=== PATIENT | male | born 1955 | race Caucasian/White ===

== ENCOUNTER 2021-04-04 19:38 | Emergency (ER) | payer MEDICARE, MEDICAID, SELFPAY ==
--- NOTE | 2021-04-04 | ECG_ITS ---
Test Reason : TIGHTNESS Blood Pressure : / mmHG Vent. Rate : 057 BPM Atrial Rate : 057 BPM P-R Int : 178 ms QRS Dur : 098 ms QT Int : 434 ms P-R-T Axes : 074 059 049 degrees QTc Int : 422 ms Sinus bradycardia Otherwise normal ECG No previous ECGs available Referred By: Giovanni Buckner Electronically Signed By:MAISHA SHEPPARD
[2021-04-04 19:58] VITALS: BP 133/77; PULSE 56; RESP 10; TEMP 37; O2SAT 99; BMI 20.5
--- NOTE | 2021-04-04 20:05 | ED_ITS ---
HPI - Syncope General Chief Complaint: Syncope Stated Complaint: SYNCOPE Time Seen by Provider: 04/04/21 20:04 Source: patient Limitations: no limitations History of Present Illness HPI narrative: This is a 66-year-old male with a history of hypercholesterolemia and pre diabetes, both of which have been helped by a low carb diet, who was at a restaurant tonight eating. He had a mild headache and became dizzy and had a brief episode of syncope. He did not fall collapse in any way, was helped with the cold compress. After coming to, he felt somewhat flushed and clammy. He had had some gas associated with having just eating clam chowder. He denies any chest pain or shortness of breath, or palpitations. He notes heart rate tends to run in the 50s. He denies any prior history of heart disease, prior syncopal episodes Related Data Allergies Allergy/AdvReac Type Severity Reaction Status Date / Time No Known Allergies Allergy Verified 04/04/21 20:12 Review of Systems Review of Systems: Yes all other systems are reviewed and are negative Constitutional: Constitutional: Reports as per HPI and Denies fever(s) Eyes: Eyes: Reports as per HPI and Reports no additional eye complaints ENT: Reports system reviewed and no additional complaints, except as documented, Reports as per HPI, Reports dizziness, Denies nasal congestion, Denies nasal discharge and Denies sore throat Cardiovascular: Cardiovascular: Reports as per HPI, Denies chest pain, Reports syncope and Denies dyspnea Respiratory: Respiratory: Reports as per HPI, Denies cough and Denies dyspnea Gastrointestinal: Gastrointestinal: Reports as per HPI, Denies abdominal pain, Denies diarrhea and Denies vomiting Genitourinary: Genitourinary: Reports as per HPI, Denies hematuria, Denies dysuria and Denies urinary frequency Musculoskeletal: Musculoskeletal: Reports no additional musculoskeletal complaints and Denies numbness Integumentary/Breasts: Skin/Breast: Reports as per HPI and Denies rash Neurologic: Reports dizziness, Reports syncope, Denies numbness and Denies Sensory deficit (Neuro) Psychiatric: Psychiatric: Reports no additional psychiatric complaints and Reports as per HPI Endocrine: Endocrine: Reports no additional endocrine complaints and Reports as per HPI Hematologic/Lymphatic: Hematologic/Lymphatic: Reports no additional hematologic/lymphatic complaints, Reports as per HPI and Reports other (No peripheral edema) [facility] Past Medical History Medical History (Updated 04/05/21 @ 00:01 by Background Daemon) Insomnia Osteoporosis Social History Social History Alcohol intake: never Patient Tobacco Use Status: Never used Tobacco Use of substances other than those prescribed or required for medical reasons: No Advance Directives: No Physical Exam Vital Signs: Vital Signs: Last Vital Signs Temp 98.1 F 04/04/21 21:44 Pulse 63 04/04/21 21:44 Resp 12 04/04/21 21:44 BP 122/77 04/04/21 21:44 Pulse Ox 98 04/04/21 21:44 Body Mass Index 20.5 Const: General: cooperative, no acute distress and alert Orientation/consciousness: patient oriented x3 HENMT: Head: Yes normal to inspection Eyes: General: appearance normal, both eyes and all related structures Eyelids: Yes eyelids normal Conjunctivae: conjunctivae normal Pupils: Equal, round and reactive pupils present Neck: Neck: Yes normal visual inspection and Yes supple Chest: Chest palpation & inspection: normal inspection of the chest Resp: Effort & Inspection: normal respiratory effort Auscultation: clear to auscultation bilaterally Cardio: Rate: regular rate Rhythm: regular rhythm Heart sounds: S1 normal heart sound present, S2 normal heart sound present, no gallops, no murmurs and no rubs GI: Palpation (GI): Soft to palpation, nontender and Other GI palpation findings present (Non-distended) Auscultation: normal bowel sounds Skin: General skin exam: no rashes or lesions noted Neuro: General: patient oriented x3, no focal motor deficits and CN's II-XI intact bilaterally Cranial nerves: Yes Equal, round and reactive pupils present Cognition (Neuro): normal cognition Motor exam (neuro): 5/5 motor strength present throughout Sensory Exam: No Sensory deficit (Neuro) Extrem: General: Yes normal to inspection and Yes no pedal edema Psych: Appearance: grossly normal Affect: normal affect MDM - Syncope MDM Narrative Medical decision making narrative: Patient with likely vasovagal syncope, which occurred while he was eating. The patient had mild headache and did have some gas. Patient also notes that after he went to the bathroom tonight he did pass a lot of gas and he had had a large bowel movement earlier today. EKG unremarkable. Troponin negative. Patient not anemic. Patient ambulated to the bathroom steadily and felt well. Lab Data Result diagrams: 04/04/21 20:33 04/04/21 20:33 Labs: Lab Results 04/04/21 04/04/21 04/04/21 Range/Units 20:33 20:33 20:33 WBC 7.0 (4.8-10.8) X10*3/uL RBC 4.48 L (4.60-5.80) X10*6/uL Hgb 14.8 (14.0-18.0) g/dl Hct 43.4 (42-52) % MCV 96.9 (80-98) fL MCH 33.0 (27.0-33.0) pg MCHC 34.1 (31.0-36.0) g/dl RDW 12.0 (11.0-16.0) % Plt Count 230 (160-400) X10*3/uL MPV 9.2 L (9.4-12.4) fL Immature Gran % (Auto) 0.4 (0.0-0.4) % Neut % (Auto) 77.8 H (45-73) % Lymph % (Auto) 10.9 L (20-40) % [place] % (Auto) 8.2 (2-11) % Eos % (Auto) 2.0 (0-4) % Baso % (Auto) 0.7 (0-2) % Lymph # (Auto) 0.8 L (1.2-4.9) X10*3/uL [place] # (Auto) 0.6 (0.1-1.2) X10*3/uL Eos # (Auto) 0.1 (0.0-0.4) X10*3/uL Baso # (Auto) 0.1 (0.0-0.2) X10*3/uL Abs Immat Gran (auto) 0.03 (0.00-0.03) X10*3/uL Absolute Neuts (auto) 5.4 (2.0-8.3) X10*3/uL Absolute Nucleated RBC 0.000 (0.0-0.012) X10*3/uL Nucleated RBC % (auto) 0.0 (0.0-0.2) /100WBC Sodium 130 L (135-145) mmol/L Potassium 4.1 (3.3-5.1) mmol/L Chloride 103 (96-108) mmol/L Carbon Dioxide 16 L (22-29) mmol/L Anion Gap 15 (12-20) BUN 11 (9-16) mg/dL Creatinine 0.85 (0.5-1.4) mg/dL Estim Creat Clear Calc 75.0 Estimated GFR > 60 Random Glucose 123 H (60-115) mg/dL Calcium 8.7 (8.4-10.2) mg/dL Total Bilirubin 0.7 (0.0-1.0) mg/dL AST 32 (5-37) U/L ALT 15 (0-40) U/L Alkaline Phosphatase 43 (39-117) U/L Troponin I High Sens < 3.5 (<3.5-35.0) ng/L Total Protein 6.8 (6.5-8.0) g/dL Albumin 4.4 (3.5-5.0) g/dL ECG Data Attestation: I personally reviewed and interpreted this ECG as follows: ECG interpretation date: 04/04/21 Interpretation: Sinus bradycardia with rate of 57. No ST elevation depression. No ectopy. Normal QRS axis Discharge Plan Discharge Clinical Impression: Vasovagal syncope Patient Disposition: Home, Self-Care Instructions: Syncope in Older Adults (ED) Additional Instructions: Drink plenty of fluids. Follow up with your primary care physician. Return for any new or worsened symptoms such as recurrent episodes of fainting, dizzy episodes, palpitations, black or bloody stool Interventions: ED Discharge Assessment Last Done: 04/04/21 22:10 Discharge Date/Time: 04/04/21 22:10
[2021-04-04 20:40] LABS: MANUAL DIFF FLAG NO
[2021-04-04 20:41] LABS: Basophils Absolute Auto 0.1 X10*3/uL (0.0-0.2); Basophils Percent Auto 0.7 % (0-2); Eosinophils Absolute Auto 0.1 X10*3/uL (0.0-0.4); Hematocrit 43.4 % (42-52); Hemoglobin 14.8 g/dl (14.0-18.0); Imm Gran Abs Auto 0.03 X10*3/uL (0.00-0.03); Imm Gran Pct Auto 0.4 % (0.0-0.4); Lymphocytes Absolute Auto 0.8 X10*3/uL (1.2-4.9); Lymphocytes Percent Auto 10.9 % (20-40); Mean Corpuscular HGB Conc 34.1 g/dl (31.0-36.0); Mean Corpuscular Volume 96.9 fL (80-98); Mean Platelet Volume 9.2 fL (9.4-12.4); Monocytes Absolute Auto 0.6 X10*3/uL (0.1-1.2); Monocytes Percent Auto 8.2 % (2-11); Neutrophils Absolute Auto 5.4 X10*3/uL (2.0-8.3); Neutrophils Percent Auto 77.8 % (45-73); Platelet Count 230 X10*3/uL (160-400); Red Blood Count 4.48 X10*6/uL (4.60-5.80)
[2021-04-04] MEDS: 0.9 % Sodium Chloride 500 ML IV (20:59)
[2021-04-04 21:04] LABS: Alanine Aminotransferase 15 U/L (0-40); Albumin Level 4.4 g/dL (3.5-5.0); Alkaline Phosphatase 43 U/L (39-117); Anion Gap 15 (12-20); Aspartate Amino Transferase 32 U/L (5-37); Bilirubin Total 0.7 mg/dL (0.0-1.0); Blood Urea Nitrogen 11 mg/dL (9-16); Calcium 8.7 mg/dL (8.4-10.2); Carbon Dioxide 16 mmol/L (22-29); Chloride 103 mmol/L (96-108); Estimated Glomerular Filt Rate > 60; Glucose Random 123 mg/dL (60-115); Potassium 4.1 mmol/L (3.3-5.1); Sodium 130 mmol/L (135-145); Total Protein 6.8 g/dL (6.5-8.0)
[2021-04-04 21:05] LABS: Troponin-I High Sensitivity < 3.5 ng/L (<3.5-35.0)
[2021-04-04 21:39] VITALS: O2SAT 99
[2021-04-04 21:44] VITALS: BP 122/77; PULSE 63; RESP 12; TEMP 36.7; O2SAT 98
== END 2021-04-04 22:10 | disposition home or self-care (01) ==
PROVIDERS: Emergency Provider Emergency Medicine; PCP Family Medicine
DX: R55 Syncope and collapse (principal); Z79.899 Other long term (current) drug therapy
CPT/HCPCS: 36415; 80053; 84484; 85025; 93005; 96360; 99284; 99285

== ENCOUNTER 2025-03-12 10:30 | Emergency (ER) | payer MEDICARE, SELFPAY ==
--- NOTE | ~2025-03-12 | XR_ITS ---
EXAMINATION: XR CHEST 1 VIEW HISTORY: Pneumonia? COMPARISON: There are no prior studies available for comparison. FINDINGS: A single PA view of the chest is submitted. The lungs are expanded and clear. There is no pleural effusion, pneumothorax, or pulmonary vascular congestion. The heart is normal in size. There is mild levoscoliosis and degenerative disc disease of the spine. XR/XR chest 1V IMPRESSION: Clear lungs. Electronically signed by: Washington Chin MD 03/12/2025 11:26 AM EDT
--- NOTE | 2025-03-12 10:31 | ECG_ITS ---
Test Reason : PATPITATION Blood Pressure : */* mmHG Vent. Rate : 95 BPM Atrial Rate : * BPM P-R Int : * ms QRS Dur : 84 ms QT Int : 320 ms P-R-T Axes : * 13 22 degrees QTcB Int : 402 ms Atrial fibrillation Septal infarct , age undetermined Abnormal ECG When compared with ECG of 04-Apr-2021 20:08, Atrial fibrillation has replaced Sinus rhythm Vent. rate has increased by 38 bpm Referred By: Generic ED Physician Electronically Signed By: RENATO BOYLE
[2025-03-12 10:54] VITALS: BP 169/81; PULSE 102; RESP 16; TEMP 37; O2SAT 98; BMI 22.6
--- NOTE | 2025-03-12 11:01 | ED.GENADULT ---
HPI - General Adult General Chief complaint: Arrhythmia/Palpitations Stated complaint: Heart palpitations Time Seen by Provider: 03/12/25 13:45 Source: patient Mode of arrival: ambulatory Limitations: no limitations History of Present Illness ED Provider: DR. Brewster HPI narrative: 70-year-old male history of hypercholesterolemia and prediabetic came in for evaluation of palpitation, feeling dizziness and lightheadedness, patient also was complaining of left arm pain this morning. No CP, no LOC, no SOB. Related Data Home Medications ?Medication ?Instructions ?Recorded ?Confirmed acetaminophen 500 mg tablet 500 mg PO Q6H PRN Pain 03/12/25 03/12/25 ascorbic acid (vitamin C) 1,000 mg 1,000 mg PO DAILY 03/12/25 03/12/25 tablet (Vitamin C) cholecalciferol (vitamin D3) 50 50 mcg PO BID 03/12/25 03/12/25 mcg (2,000 unit) tablet (Vitamin D3) vitamin B complex 1 tab PO DAILY 03/12/25 03/12/25 zinc gluconate 50 mg tablet 50 mg PO DAILY 03/12/25 03/12/25 Previous Rx's ?Medication ?Instructions ?Recorded apixaban 5 mg tablet (Eliquis) 5 mg PO BID #60 tabs 03/12/25 metoprolol tartrate 25 mg tablet 12.5 mg (1/2 x 25 mg) PO BID #20 03/12/25 tabs Allergies Allergy/AdvReac Type Severity Reaction Status Date / Time No Known Allergies Allergy Verified 03/12/25 10:57 Review of Systems Review of Systems: All other systems are reviewed and are negative Constitutional: Reports as per HPI and Reports no additional constitutional complaints Eyes: Reports as per HPI and Reports no additional eye complaints Reports system reviewed and no additional complaints, except as documented Cardiovascular: Reports as per HPI and Reports no additional cardiovascular complaints Respiratory: Reports as per HPI and Reports no additional respiratory complaints Gastrointestinal: Reports as per HPI and Reports no additional gastrointestinal complaints Genitourinary: Reports no additional female genitourinary complaints Musculoskeletal: Reports no additional musculoskeletal complaints Skin/Breast: Reports system reviewed and no additional complaints, except as docu Psychiatric: Reports no additional psychiatric complaints Endocrine: Reports no additional endocrine complaints Hematologic/Lymphatic: Reports no additional hematologic/lymphatic complaints Allergic/Immunologic: Reports no additional allergic/immunologic complaints Reports system reviewed and no additional complaints, except as documented and Reports Abnormal speech present [facility] Past Medical History Medical History Osteoporosis Insomnia Social History Social History Alcohol intake: never Patient Tobacco Use Status: Never used Tobacco Physical Exam ED Vital Signs: Vital Signs - 24 hr 03/12/25 14:26 03/12/25 14:45 03/12/25 16:41 Temperature 98.5 F Pulse Rate 98 96 96 Respiratory Rate 14 12 12 Blood Pressure 98/68 131/79 131/79 Pulse Oximetry 100 98 98 Oxygen Delivery Method Room Air Room Air Room Air BMI result Body Mass Index 22.6 Vital signs have been reviewed and appear to be correct. Blood pressure elevated. Heart rate normal. Respiratory rate normal. Temperature normal. Oxygen saturation normal. Appearance: Alert. Oriented X3. No acute distress. Head: Normal external exam. Normocephalic. Atraumatic. No Baker signs noted. No raccoon eyes noted Eyes: PERRLA. EOMI. Conjunctiva and sclera normal. Eyelids normal. ENT: TM's Normal. Pharynx normal. Uvula midline. Moist mucous membranes. No trismus noted. No drooling noted. No muffled voice noted. Neck: Normal inspection. Neck supple. FROM. No adenopathy. Thyroid Normal. No meningeal signs. No neck mass noted. CVS: Normal heart rate and rhythm. Heart sound normal. No murmurs noted. Pulses normal throughout. Respiratory: No respiratory distress. Painless inspiration. Breath sounds normal. No wheezes/rales/rhonchi noted. Chest nontender. No accessory muscle usage noted or decreased air movement noted. Abdomen: Soft and nontender. Bowel sounds normal in all 4 quadrants. No distention noted. No organomegaly noted. No visible injury noted. Back: No CVA tenderness. Full range of motion noted. Skin: Skin warm and dry. Normal skin color. Normal skin turgor. No rashes/lesions/lacerations noted. Extremities: No lower extremity edema. Extremities exhibit normal range of motion. Extremities nontender. Neuro: Oriented X 3. Cranial nerve exam: II-XII are grossly intact No motor deficit. No sensory deficit. Reflexes normal. Course Course Course Narrative: RME: 70 yold male presents to the ED for heart palptiations this morning at 8am with left arm pain. patient states no chest pain. negative for any neuro dieficts. NIH score 0. labs, EKG, chest xray ordered Reevaluation(s) Reevaluation #1: New onset AFib, [id number] is 1, will controlled with beta domenico, patient converted into normal sinus rhythm at 60 beats per minute, no chest pain, no dizziness, case discussed with Dr. Dominguez the plan is to discharge patient on metoprolol and Eliquis and follow-up as an outpatient with Dr. Dominguez. Time: 14:06 Medications Administered Discontinued Medications Generic Name Dose Route Start Last Admin Trade Name Freq PRN Reason Stop Dose Admin Apixaban 5 mg 03/12/25 15:48 03/12/25 16:16 Apixaban 5 Mg Tablet PO 03/12/25 15:49 5 mg ONCE ONE Administration Lactated Ringer's 1,000 mls @ 500 mls/hr 03/12/25 14:15 03/12/25 16:26 Lr IV 03/12/25 16:14 Infused .Q2H AUREA Infusion Metoprolol Succinate 25 mg 03/12/25 13:45 03/12/25 14:26 Metoprolol Succinate Er 25 Mg Tab.Er.24h PO 03/12/25 13:46 25 mg ONCE ONE Administration Protocol Metoprolol Tartrate 5 mg 03/12/25 13:45 03/12/25 14:27 Metoprolol Tartrate 5 Mg/5 Ml Vial IVPUSH 03/12/25 13:46 5 mg ONCE ONE Administration Protocol Medical Decision Making Differential Diagnosis Differential Diagnoses: The differential diagnosis associated with the presentation includes (CHF, ACS, new onset AFib, CVA, electrolyte derangement, severe anemia.) Admission/Observation Consideration of admission/observation: Escalation of care including admission/observation considered Consult Healthcare Provider Management of the patient was discussed with: Hospitalist (Dr. Ba) Lab Data MDM Lab Attestation statement: I reviewed the patient's lab results. 03/12/25 11:09 03/12/25 11:09 Labs: Lab Results 03/12/25 Range/Units 11:09 WBC 7.2 (4.8-10.8) X10*3/uL RBC 4.86 (4.60-5.80) X10*6/uL Hgb 15.9 (14.0-18.0) g/dl Hct 48.1 (42.0-52.0) % MCV 99.0 H (80.0-98.0) fL MCH 32.7 (27.0-33.0) pg MCHC 33.1 (31.0-36.0) g/dl RDW 12.2 (11.0-16.0) % Plt Count 238 (160-400) X10*3/uL MPV 9.6 (9.4-12.4) fL Immature Gran % (Auto) 0.4 (0.0-0.4) % Neut % (Auto) 80.3 H (45-73) % Lymph % (Auto) 10.5 L (20-40) % [place] % (Auto) 7.4 (2-11) % Eos % (Auto) 0.7 (0-4) % Baso % (Auto) 0.7 (0-2) % Lymph # (Auto) 0.8 L (1.2-4.9) X10*3/uL [place] # (Auto) 0.5 (0.1-1.2) X10*3/uL Eos # (Auto) 0.1 (0.0-0.4) X10*3/uL Baso # (Auto) 0.1 (0.0-0.2) X10*3/uL Abs Immat Gran (auto) 0.03 (0.00-0.03) X10*3/uL Absolute Neuts (auto) 5.8 (2.0-8.3) x10*3/uL Absolute Nucleated RBC 0.000 (0.0-0.012) X10*3/uL Nucleated RBC % (auto) 0.0 (0.0-0.2) /100WBC PT 11.3 (10.9-12.4) SEC INR 1.0 (0.9-1.1) APTT 33.4 (26.7-34.1) SEC Sodium 138 (135-145) mmol/L Potassium 4.2 (3.3-5.1) mmol/L Chloride 101 (96-108) mmol/L Carbon Dioxide 29 (22-29) mmol/L Anion Gap 12 (12-20) BUN 16 (9-16) mg/dL Creatinine 0.79 (0.5-1.4) mg/dL Estim Creat Clear Calc 84.1 Estimated GFR > 60 Random Glucose 127 H (60-115) mg/dL Calcium 10.1 D (8.4-10.2) mg/dL Magnesium 1.9 (1.6-2.6) mg/dL Total Bilirubin 0.6 (0.0-1.0) mg/dL AST 34 (5-37) U/L ALT 19 (0-40) U/L Alkaline Phosphatase 55 (39-117) U/L Troponin I High Sens 5.8 (<3.5-35.0) ng/L Total Protein 7.6 (6.5-8.0) g/dL Albumin 4.9 (3.5-5.0) g/dL TSH 1.39 (0.32-4.0) uIU/mL Independent Interpretation I performed an independent interpretation of an: Plain X-Ray (Chest: Clear lung) Radiology Impression Discussion of test interpretation with radiology: I have reviewed the radiologist's reading. Critical Care Time Critical Care Time Critical Care Time: Yes (40) Total Critical Care Time: 40 Attestation: The patient was critically ill with a high probability of imminent or life-threatening deterioration. I spent greater than 30 minutes of discontinuous time evaluating the patient, delivering critical care at the bedside, discussing evaluating data with consultants. Critical care time does not include time spent performing separately billable procedures or teaching. Time spent performing critical care was 40 minutes. Discharge Plan Discharge Clinical Impression: New onset a-fib Patient Disposition: Home, Self-Care Instructions: A-fib (Atrial Fibrillation) (ED) Prescriptions: New metoprolol tartrate 25 mg tablet 12.5 mg PO BID Qty: 20 0RF Eliquis 5 mg tablet 5 mg PO BID Qty: 60 0RF No Action ascorbic acid (vitamin C) [Vitamin C] 1,000 mg Tablet 1,000 mg PO DAILY vitamin B complex Tablet 1 tab PO DAILY zinc gluconate 50 mg Tablet 50 mg PO DAILY cholecalciferol (vitamin D3) [Vitamin D3] 50 mcg (2,000 unit) Tablet 50 mcg PO BID acetaminophen 500 mg Tablet 500 mg PO Q6H PRN (Reason: Pain) Referrals: Gustavo Yost MD [Primary Care Provider, Family Practice] Rich Dominguez MD [Physician, Cardiology] Interventions: ED Discharge Assessment Last Done: 03/12/25 16:41 Discharge Date/Time: 03/12/25 16:46 Print Language: Malay
[2025-03-12 11:20] LABS: MANUAL DIFF FLAG NO
[2025-03-12 11:25] LABS: Hematocrit 48.1 % (42.0-52.0); Hemoglobin 15.9 g/dl (14.0-18.0); Imm Gran Abs Auto 0.03 X10*3/uL (0.00-0.03); Imm Gran Pct Auto 0.4 % (0.0-0.4); Lymphocytes Absolute Auto 0.8 X10*3/uL (1.2-4.9); Mean Corpuscular HGB Conc 33.1 g/dl (31.0-36.0); Mean Corpuscular Hemoglobin 32.7 pg (27.0-33.0); Mean Corpuscular Volume 99.0 fL (80.0-98.0); NRBC Abs Auto 0.000 X10*3/uL (0.0-0.012); NRBC Pct Auto 0.0 /100WBC (0.0-0.2); Platelet Count 238 X10*3/uL (160-400); Red Blood Count 4.86 X10*6/uL (4.60-5.80); White Blood Count 7.2 X10*3/uL (4.8-10.8)
[2025-03-12 11:30] LABS: INTERNATIONAL NORM RATIO 1.0 (0.9-1.1); Prothrombin Time 11.3 SEC (10.9-12.4)
[2025-03-12 11:33] LABS: Partial Thromboplastin Time 33.4 SEC (26.7-34.1)
[2025-03-12 11:46] LABS: Troponin-I High Sensitivity 5.8 ng/L (<3.5-35.0)
[2025-03-12 11:51] LABS: Alanine Aminotransferase 19 U/L (0-40); Albumin Level 4.9 g/dL (3.5-5.0); Alkaline Phosphatase 55 U/L (39-117); Anion Gap 12 (12-20); Aspartate Amino Transferase 34 U/L (5-37); Blood Urea Nitrogen 16 mg/dL (9-16); Calcium 10.1 mg/dL (8.4-10.2); Carbon Dioxide 29 mmol/L (22-29); Chloride 101 mmol/L (96-108); Creatinine Clr Calc Pharmacy 84.1; Estimated Glomerular Filt Rate > 60; Magnesium 1.9 mg/dL (1.6-2.6); Potassium 4.2 mmol/L (3.3-5.1); Sodium 138 mmol/L (135-145); Total Protein 7.6 g/dL (6.5-8.0)
[2025-03-12 12:12] VITALS: BP 117/75; PULSE 112; RESP 13; TEMP 36.6; O2SAT 99
--- OUTSIDE RECORDS SUMMARY | 2025-03-12 13:16 | XMS_ITS | Clinical Summary ---
Author Organization [facility] Address [address] [place] [id number] Phone Care Team Providers Care Senior Network Security Architect Name Role Phone Donis Garza [place] Primary Care Provider Social History Tobacco Use Types Packs/Day Years Used Date Smoking Tobacco: Never Assessed Education Answer Date Recorded Are you interested in more education? Not on carlos e 11/13/2022 Are you concerned about learning? Not on file 11/13/2022 No 11/13/2022 No 11/13/2022 Digital Access Answer Date Recorded No 12/12/2022 No 12/12/2022 No 12/12/2022 Reliable internet access at home? Not on file 12/12/2022 Device with a working camera? Not on file Sex and Gender Information Value Date Recorded Sex Assigned at Not on file Legal Sex Male 2:46 PM EDT Gender Identity Not on file Sexual Orientation Not on file Plan of Treatment Health Maintenance Due Date Last Done Comments Adult Td,Tdap Booster 1956 LIPID PANEL 1956 DEPRESSION SCREENING 1968 SMOKING Hx and SMOKELESS TOBACCO SCREENING 01/26/1969 HEPATITIS C SCREENING 01/26/1974 COLOGUARD 01/26/2001 COLONOSCOPY 01/26/2001 COLORECTAL CANCER SCREENING 01/26/2001 FIT TEST 01/26/2001 FOBT 01/26/2001 SIGMOIDOSCOPY 01/26/2001 VIRTUAL COLONOSCOPY 01/26/2001 PNEUMOCOCCAL VACCINES (50+ years) (1 of 1 - PCV) 01/26/2006 ZOSTER VACCINES (1 of 2) 01/26/2006 COVID-19 VACCINE (3 - 2023-2 5 season) 2024 11/17/2020, 10/26/2020 RSV VACCINE (1 - 1-dose 75+ series) 01/26/2031 HEPATITIS A VACCINES Aged Out No long er eligible based on patient's age to complete this topic HIB VACCINES Aged Out No longer eligi ble based on patient's age to complete this topic MENINGOCOCCAL VACCINES (ACWY) Aged Out No longer eligible based on patient's age to complete this topic MENINGOCOCCAL VACCINES (B) Aged Out N o longer eligible based on patient's age to complete this topic Medical Devices Not on file Insurance [facility] MEDICARE HMO REPLACEMENT [facility] MEDICARE HMO REPLACEMENT [place] [address] [place] [address] MEDICARE HMO RE[facility] [place] [place] [facility] MEDICARE HMO REPLACEMENT [facility] [place]ICARE [place] [facility] MEDICARE HMO REPLACEMENT Member Subscriber Plan / Payer (Ef fective 2021-) Name:Jaspreet Borja Relation to Subscriber:Self Name:Jaspreet Borja Payer ID:Not on file Type:Medicare Address: [address] [facility] MEDICARE HMO REPLACEMENT [place] MEDIC[facility] HMO REPLACEMENT [facility] Care Teams Senior Network Security Architect Relationship Specialty Start Date End Date Donis Garza DO [address] [facility] [place] [address] PCP - General Family Medicine 03/12/21 Additional Source Comments The information contained in this document represents components of the legal health record. It is not the complete legal health record.[facility]
--- OUTSIDE RECORDS SUMMARY | 2025-03-12 13:16 | XMS_ITS | Encounter Summary ---
Author Organization [facility] Address [address] [place] [address] Care Team Providers Care Media Marketing Coordinator Name Role Phone Donis Garza DO Primary Care Provider [phone] Encounter Details Date Type Department Care Team (Late st Contact Info) Description 07/02/[address] [facility] - Main Lab [address] [place] [address] Rip Álvarez PA [address] [id number] Gross hematuria Social History Tobacco Use Types Packs/Day Years Used Date Smoking Tobacco: Never Smokeless Tobacco: Never Alcohol Use Standard Drinks/Week Comments Yes 2 (1 standard drink = 0.6 oz pur e alcohol) Sex and Gender Information Value Date Recorded Sex Assigned at Not on file Legal Sex Male 6:59 PM EST Gender Identity Not on file Sexual Orientation Not on file documented as of this encounter Plan of Treatment Not on file documented as of this encounter Procedures Procedure Name Priority Date/Time Associated Diagnosis Comments AP OUTSIDE CONSULT Routine 06/28/2024 12 :00 AM EST Gross hematuria documented in this encounter Results * Anatomic pathology outside consult (06/28/2024 12:00 AM EST) Final Diagnosis Urine, Voided: Negative for high grade urothelial carcinoma. 07/23/2024 4:30 PM EST [facility] [place] Clinical Information Gross Hematuria R31.0 [id number] Urine cytology. 07/23/2024 4:[address] [facility] Gross Description A. Urine, Voided, : [id number] Received one ThinPrep slide for cytology 07/23/2024 4:[address] [facility] Disclaimer Unless otherwise specified, all tissue is 10% NB formalin fixed and paraffin embedded. Technical pathology services provided by [facility] at [address], [place] [address] (CLIA #[id number] rachell Petersen MD, Indirect Sales Exec) 07/23/2024 4:[address] [facility] Tissue Urine specimen from urethra / Unknown 06/28/2024 07/02/2024 10:19 AM EST us [facility] PATHOLOGY ORDERABLES Final R esult [facility] [address] [place] [address], documented in this encounter Visit Diagnoses Diagnosis Gross hematuria documented in this encounter Care Teams Media Marketing Coordinator Relationship Specialty Start Date End Date Donis Garza DO [address] [place] [address] PCP - General Family Medicine 12/11/21 documented as of this encounter
--- OUTSIDE RECORDS SUMMARY | 2025-03-12 13:16 | XMS_ITS | Clinical Summary ---
Author Organization [address] Address [address] [place] [address] Phone Care Team Providers Care Gamer Name Role Phone Donis Garza DO Primary Care Provider [phone] Surgical History Surgery Date Site/Laterality Comments COLONOSCOPY 11/28/2019 PROCEDURE: HISTORICAL COLONOSCOPY Medical History Medical History Date Comments Disc disorder of cervical region DX:Disc disorder of cervical region Glaucoma DX:Glaucoma Impaired fasting glucose DX:Impa ired fasting glucose Milial cyst DX:Milial cyst Near syncope DX:Near syncope Neck pain DX:Neck pain Ptosis of left eyelid DX:Ptosis of left eyelid Screening cholesterol level DX:S creening cholesterol level Screening for prostate cancer DX :Screening for prostate cancer Other seborrheic keratosis DX:Ot her seborrheic keratosis Lightheaded DX:Lightheaded Pudendal neuralgia DX:Pudendal n euralgia Unintentional weight loss of more than 10 pounds DX:Unintentional weight loss of more than 10 pounds Macrocytosis DX:Macrocytosis Family History Medical History Relation Name Comments Heart attack Father Dementia Mother Relation Name Status Comments Father Mother Social History Tobacco Use Types Packs/Day Years Used Date Smoking Tobacco: Never Smokeless Tobacco: Never Alcohol Use Standard Drinks/Week Comments Yes 2 (1 standard drink = 0.6 oz pur e alcohol) Sex and Gender Information Value Date Recorded Sex Assigned at Not on file Legal Sex Male 6:59 PM EST Gender Identity Not on file Sexual Orientation Not on file Obstetrics History Last Filed Vital Signs Vital Sign Reading Time Taken Comments Blood Pressure 124/64 06/02/2022 9:28 AM EST Sitting L Arm Pulse 56 06/02/2022 9:28 AM EST Temperature - - Respiratory Rate - - Oxygen Saturation - - Inhaled Oxygen Concentration - - Weight 72.1 kg (158 lb 14.4 oz) 06/02/2022 9:28 AM EST Height 172.7 cm (5' 8 ) 06/02/2022 9:28 AM EST Body Mass Index 24.16 06/02/2022 9:28 AM EST Plan of Treatment Health Maintenance Due Date Last Done Comments DTaP,Tdap,and Td Vaccines (1 - Tdap) 01/26/1975 Pneumococcal Vaccine: 50+ Ye ars (1 of 1 - PCV) 01/26/2006 Zoster Vaccines (1 of 2) 01/26/2006 Abdominal Aortic Aneurysm (A AA) Screen 06/19/2022 Cholesterol Screening (Lipid Panel) 06/19/2022 Colorectal Cancer Screening: Colonoscopy 06/19/2022 Falls Risk Assessment 06/19/2022 Hepatitis C Screening 06/19/2022 Medicare Annual Wellness Visit 06/19/2022 Social Influencers of Health Screening 06/19/2022 COVID-19 Vaccine (1 - 2023-2 5 season) 2024 Depression Screening 07/18/2024 Influenza Vaccine (#1) 2025 RSV Immunization Adult Patie nts (1 - 1-dose 75+ series) 01/26/2031 HIB Vaccines Aged Out No longer eligi ble based on patient's age to complete this topic HPV Vaccines Aged Out No longer eligi ble based on patient's age to complete this topic Hepatitis A Vaccines Aged Out No long er eligible based on patient's age to complete this topic Hepatitis B Vaccines Aged Out No long er eligible based on patient's age to complete this topic IPV Vaccines Aged Out No longer eligi ble based on patient's age to complete this topic MMR Vaccines Aged Out No longer eligi ble based on patient's age to complete this topic Meningococcal ACWY Vaccine Aged Out N o longer eligible based on patient's age to complete this topic Meningococcal B Vaccine Aged Out No l onger eligible based on patient's age to complete this topic RSV Immunization Patients Un brandy 20 months Aged Out No longer eligible b ased on patient's age to complete this topic Varicella Vaccines Aged Out No longer eligible based on patient's age to complete this topic Insurance [employer] MEDIC[employer] ADVANTAGE Care Teams Gamer Relationship Specialty Start Date End Date Donis Garza DO [address] [place], [place] PCP - General Family Medicine 12/11/21
--- OUTSIDE RECORDS SUMMARY | 2025-03-12 13:16 | XMS_ITS | Encounter Summary ---
Author Organization [facility] Address [address] [place] [address] Care Team Providers Care Cadworx Piping Designer Name Role Phone Donis Garza DO Primary Care Provider [phone] Encounter Details Date Type Department Care Team (Late st Contact Info) Description 08/02/2024 Lab Requisition [facility] - Main Lab [address] [facility] [place] [address] Rip Álvarez PA [address] [phone] Gross hematuria Social History Tobacco [...] Associated Diagnosis Comments AP OUTSIDE CONSULT Routine 07/26/2024 12 :00 AM EST Gross hematuria documented in this encounter Results * Anatomic pathology outside consult (07/26/2024 12:00 AM EST) Final Diagnosis A. Urine, Voided, ([id number]): Negative for high grade urothelial carcinoma. 08/15/2024 9:02 AM EST [facility] Clinical Information Gross hematuria R31.0 Urine Cytology (now) 08/15/2024 9:02 AM EST [facility] Gross Description A. Urine, Voided, ([id number]): Received is one ThinPrep slide for cytology. 08/15/2024 9:02 AM EST [facility] Disclaimer Unless otherwise specified, all tissue is 10% NB formalin fixed and paraffin embedded. Technical pathology services provided by [facility] [address] [place] [address] (CLIA #[id number]/S rachell Petersen MD, Molder Setter) 08/15/2024 9:02 AM [facility] Tissue Urine specimen from urethra / Unknown 07/26/2024 08/02/2024 11:48 AM EST us Rip JOSE LAB PATHOLOGY ORDERABLES Final R esult [facility] [address] [place] [address], documented in this encounter Visit Diagnoses Diagnosis Gross hematuria documented in this encounter Care Teams Cadworx Piping Designer Relationship Specialty Start Date End Date Donis Garza DO [address] [place] [address] PCP - General Family Medicine 12/11/21 documented as of this encounter
--- OUTSIDE RECORDS SUMMARY | 2025-03-12 13:16 | XMS_ITS ---
Author Name [facility] Organization Unknown Problems Problem Status Onset Date Problem Type Date of Resoluti on Source Family history of Alzheimer's disease active EncounterDiagnosisAct HHCCT MCI (mild cognitive impairment) active EncounterDiagnosisAct HHCCT Care Team Organization Name Specialty Phone Email Start Date End [facility] Donis Garza Primary Care 11/29/2023
--- OUTSIDE RECORDS SUMMARY | 2025-03-12 13:16 | XMS_ITS | Clinical Summary ---
Author Organization [facility] Address [address] [place] [address] Care Team Providers Care Nurse Ob Name Role Phone Donis Garza Primary Care Provider [phone] Social History Tobacco Use Types Packs/Day Years Used Date Smoking Tobacco: Never Assessed Sex and Gender Information Value Date Recorded Sex Assigned at Not on file Legal Sex Male 3:25 PM EDT Gender Identity Not on file Sexual Orientation Not on file Plan of Treatment Health Maintenance Due Date Last Done Comments Hepatitis C Virus Screening 1955 DTaP/Tdap/Td Vaccines (1 - Tdap) 01/26/1975 Colonoscopy 01/26/2001 Pneumococcal Vaccines 50+ (1 of 1 - PCV) 01/26/2006 Zoster (Shingles) Vaccine (1 of 2) 01/26/2006 COVID-19 Vaccine ( - 2023-2 5 season) 2024 Influenza Vaccine 02/15/2025 RSV Vaccine 60 years and old er and Patients (1 - 1-dose 75+ series) 01/26/2031 Hepatitis B Vaccines Aged Out No long er eligible based on patient's age to complete this topic Insurance [facility] Advance Directives Documents on File Type Date Recorded Patient Control Director Expl anation Advance Directive-Scan 12/15/2023 [place] MEDICAL ORDERS FOR LIFE-SUSTAINING TREATMENT Care Teams Nurse Ob Relationship Specialty Start Date End Date Donis Garza DO [address] [place] [address] PCP - General 11/10/23 Michel George MD [address] [place] [id number] Neurology Neurology 11/10/23
--- OUTSIDE RECORDS SUMMARY | 2025-03-12 13:16 | XMS_ITS | Encounter Summary ---
Author Organization [facility] Address [address] [place], [place] [id number] Phone Care Team Providers Care Sde Name Role Phone Donis Garza DO Primary Care Provider Reason for Referral * Physical Therapy (Routine) - Closed Specialty Diagnoses / Procedures Referred By Ilda mercado Referred To Contact Physical Therapy Diagnoses Encounter for rehabilitation new pelvic floor Procedures evaluate and treat Jose Alcala MD Phone: tel: fax: [address] [address] Phone: tel: Referral ID Status Reason Start Date Expiration Date Visits Re quested Visits Authorized [id number] Closed 03/12/2021 07/17/2021 20 20 Encounter Details Date Type Department Care Team (Latest Contact Info) Description 03/12/2021 Transcribe Orders [facility] [address] [place] [address] Jose Alcala MD [address] [place] [phone] Encounter for rehabilitation (Primary Dx) Social History Tobacco Use Types Packs/Day Years [...] Procedure Name Priority Date/Time Associated Diagnosis Comments AMB REFERRAL TO [facility] Routine 05/05/2021 11:13 AM EDT Encounter for rehabilitation documented in this encounter Results * Ambulatory referral to [facility] Physical Therapy (05/05/2021 11:13 AM EDT) Other Jose Alcala MD AMB [facility] REFERRALS Final Res ult documented in this encounter Visit Diagnoses Diagnosis Encounter for rehabilitation- Primary documented in this encounter Care Teams Sde Relationship Specialty Start Date End Date Donis Garza DO [address] [facility] [place] [address] PCP - General Family Medicine 03/12/21 documented as of this encounter Additional Source Comments The information contained in this document represents components of the legal health record. It is not the complete legal health record.[facility]
--- OUTSIDE RECORDS SUMMARY | 2025-03-12 13:16 | XMS_ITS | Clinical Summary ---
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 Vasovagal syncope 12/11/2021 Macrocytosis without anemia 12/11/2021 Weight loss 12/11/2021 Family History Medical History Relation Name Comments Heart attack Father Dementia Mother Relation Name Status Comments Father Mother Social History Tobacco Use Types Packs/Day Years Used Date Smoking Tobacco: Never Smokeless Tobacco: Never Alcohol Use Standard Drinks/Week Comments Never 0 (1 standard drink = 0.6 oz pur e alcohol) Sex and Gender Information Value Date Recorded Sex Assigned at Not on file Gender Identity Not on file Sexual Orientation Not on file Job Start Date Occupation Industry Not on file Not on file Not on file Last Filed Vital Signs Vital Sign Reading Time Taken Comments Blood Pressure 133/84 12/11/2021 2:19 PM EDT Pulse 57 12/11/2021 2:19 PM EDT Temperature 37 C (98.6 F) 12/11/2021 2:19 PM EDT Respiratory Rate - - Oxygen Saturation 99% 12/11/2021 2:19 PM EDT Inhaled Oxygen Concentration - - Weight 70.6 kg (155 lb 9.6 oz) 12/11/2021 2:19 P M EDT Height 172.7 cm (5' 8 ) 12/11/2021 2:19 PM EDT Body Mass Index 23.66 12/11/2021 2:19 PM EDT Plan of Treatment Health Maintenance Due Date Last Done Comments Hepatitis C Screening 1955 Pneumococcal Vaccine (1 of 2 - PCV) 01/26/1962 Depression Screening 1968 Preventative Health Evaluation 01/26/1974 DTap / Tdap / Td (1 - Tdap) 01/26/1975 Shingrix-Zoster Vaccine (1 o f 2) 01/26/1975 Colon Cancer Screening (Colonoscopy) 01/26/2001 COVID-19 Vaccine (3 - Pfizer risk series) 12/15/2020 11/17/2020, 10/26/2020 Fall Risk Assessment 01/26/2021 Influenza Vaccine (#1) 2025 RSV Adult > 60+ Yrs or (1 - 1-dose 75+ series) 01/26/2031 Hepatitis B Vaccines Aged Out No long er eligible based on patient's age to complete this topic RSV Ped < 20 months Aged Out No longe r eligible based on patient's age to complete this topic Insurance Payer Benefit Plan / Group Subscriber ID Effective Dates Phone Address [facility] [id number] 2021-Prese nt [address] [place] [address] [facility] [id number] 2019-Prese nt [address] [address] [place] [address] [place] [id number] 2021-Pre s ent [address] [place] [address] [address] Care Teams [address] Monkey Relationship Specialty Start Date End Date Donis Garza MD [address] [place] [id number] PCP - General Family Medicine 12/11/21
[2025-03-12 14:26] VITALS: BP 98/68; PULSE 98; RESP 14; O2SAT 100
[2025-03-12] MEDS: Lactated Ringers 1,000 ML 500 ML IV (14:26)
[2025-03-12] MEDS: Metoprolol Succinate ER 25 MG TAB.ER.24H PO (14:26)
[2025-03-12 14:45] VITALS: BP 131/79; PULSE 96; RESP 12; O2SAT 98
--- NOTE | 2025-03-12 15:13 | ECG_ITS ---
Test Reason : AFIB Blood Pressure : */* mmHG Vent. Rate : 62 BPM Atrial Rate : 62 BPM P-R Int : 180 ms QRS Dur : 92 ms QT Int : 388 ms P-R-T Axes : 75 30 60 degrees QTcB Int : 393 ms Normal sinus rhythm Normal ECG When compared with ECG of 12-Mar-2025 11:14, Sinus rhythm has replaced Atrial fibrillation Vent. rate has decreased by 33 bpm Nonspecific T wave abnormality no longer evident in Inferior leads Referred By: Arcelia Brewster Electronically Signed By: RENATO BOYLE
--- NOTE | 2025-03-12 16:05 | PHA.MEDREC ---
Addendum entered by Fernando Don, PharmD 03/12/25 18:19: MED REC CHECKED BY [facility] Original Note: Pharmacy Consult ? Medication Reconciliation Pharmacy has completed the medication reconciliation. Spoke with pt and he confirmed he is only taking OTC medications (Vitamin B Complex, D3 200un, C 1000mg, Tylenol 500mg and Zinc 50mg) and no prescription medications at this time.
[2025-03-12 16:41] VITALS: BP 131/79; PULSE 96; RESP 12; TEMP 36.9; O2SAT 98
== END 2025-03-12 16:46 | disposition home or self-care (01) ==
PROVIDERS: Physician Assistant; Emergency Provider Emergency Medicine; PCP Family Medicine
DX: R00.2 Palpitations (principal); I48.91 Unspecified atrial fibrillation; Z79.899 Other long term (current) drug therapy
CPT/HCPCS: 36415; 71045; 80053; 83735; 84443; 84484; 85025; 85610; 85730; 93005; 96361; 96374; 99284; 99285; J0616; J7120

== ENCOUNTER → 2025-03-12 10:31 | Outpatient (BNV) | payer MEDICARE, SELFPAY | PROVIDERS: Emergency Provider Emergency Medicine; PCP Family Medicine; Visit Provider Internal Medicine | DX: I48.91 Unspecified atrial fibrillation (principal) | CPT/HCPCS: 93010 ==

== ENCOUNTER → 2025-03-12 10:59 | Outpatient (BNV) | payer MEDICARE, MEDICAID, SELFPAY | PROVIDERS: Visit Provider Radiology Diagnostic Radiology | DX: R00.2 Palpitations (principal) | CPT/HCPCS: 71045 ==

== ENCOUNTER 2025-03-20 12:19 | Outpatient (AMB) | payer MEDICARE, SELFPAY ==
--- NOTE | 2025-03-20 12:31 | MHC.OFFVIS ---
Vital Signs 03/20/25 12:32 Height 5 ft 8 in Weight 149 lb 14.629 oz BMI 22.8 BP 120/62 Blood Pressure Location Lt brachial Position Sitting Pulse 55 Pulse Source Pulse Oximeter Intake Visit Reasons: new pt c d/c Allergies No Known Allergies Allergy (Verified 03/12/25 10:57) Medication List - Last Reconciled 03/20/25 by Rich Dominguez MD acetaminophen 500 mg PO Q6H PRN apixaban (Eliquis) 5 mg PO BID ascorbic acid (vitamin C) (Vitamin C) 1,000 mg PO DAILY cholecalciferol (vitamin D3) (Vitamin D3) 50 mcg PO BID metoprolol tartrate 12.5 mg (1/2 x 25 mg) PO BID vitamin B complex 1 tab PO DAILY zinc gluconate 50 mg PO DAILY HPI Comments Details: Jaspreet is here for consultation regarding atrial fibrillation. Last week, he came to the emergency room for evaluation of palpitations. He is also apparently feeling dizzy and in that setting, diagnosed with atrial fibrillation with rapid rate. In the ER, he converted to sinus rhythm and then he was sent home on a small dose of beta-domenico and Eliquis. He does not really feel any further palpitations. No clear-cut anginal-type chest pains. He does feel some stiffness in the neck and left upper shoulder that is seems rather musculoskeletal. Otherwise, no known coronary disease. In the past, he has seen [facility] for dizziness/syncope. Per notes, has had extensive workup including Holter monitoring, tilt-table, sleep study. It seems the monitor showed no significant tachy or bradyarrhythmias to explain symptoms. Short bursts of atrial tachycardia noted. Tilt-table study was apparently unremarkable. Otherwise, no known coronary disease or myocardial infarction or cardiomyopathy. [facility] Medical History Osteoporosis Insomnia Family History (Updated 03/20/25 @ 12:36 by Yumiko Orona) Mother No problems noted. Father Heart attack Social History Alcohol intake: never Patient Tobacco Use Status: Never used Tobacco Review of Systems Const Denies weakness ENT Reports dizziness and Reports neck pain Card Denies chest pain, Denies chest pain with activity, Denies syncope, Denies rapid heart rate, Denies pedal edema, Denies edema, Denies leg edema, Denies lightheadedness, Reports palpitations, Denies dyspnea, Denies dyspnea on exertion and Denies orthopnea Resp Denies cough, Denies dyspnea and Denies dyspnea on exertion GI Denies hematochezia and Denies change in stool character Musc Denies abnormal gait, Denies muscle cramps, Denies muscle weakness, Reports neck pain, Denies numbness, Denies radiating pain into limb and Denies tingling Neuro Denies abnormal gait, Reports dizziness, Denies syncope, Denies numbness, Denies tingling and Denies weakness Endo Reports palpitations Physical Exam Vital Signs: Last Vital Signs Pulse 55 03/20/25 12:32 BP 120/62 03/20/25 12:32 BMI result Body Mass Index 22.8 Const General: comfortable and no acute distress Orientation/consciousness: patient oriented x3 HEENT Other: Unremarkable Head: Yes normal to inspection Neck Neck: Yes normal visual inspection Chest Chest palpation & inspection: normal inspection of the chest Resp Auscultation: clear to auscultation bilaterally Cardio Palpation: normal PMI Heart sounds: S1 normal heart sound present, S2 normal heart sound present, no gallops, no murmurs and no rubs GI Palpation (GI): Soft to palpation Back/Spine/Pelvis Other: unremarkable Skin General skin exam: no rashes or lesions noted Neuro General: patient oriented x3 Extrem General: Yes normal to inspection Psych Mental Status: mental status grossly normal Assessment & Plan Assessment & Plan (1) PAF (paroxysmal atrial fibrillation): Code(s): I48.0 - Paroxysmal atrial fibrillation Category: Medical Plan Recent EKG shows atrial fibrillation at a rate of 95/Min. No clear ischemic changes. In the repeat EKG, sinus rhythm at 62/Min. It may be reasonable for him to continue the low-dose beta-blockers but he insists that he does get slow heart rates and he somehow feels as though his brain does not get enough blood supply. We discussed other options like another beta-domenico like atenolol versus a small dose of calcium channel domenico but I am not clear if he will agree to take as he keeps insisting that ' brain does not get enough blood'. He also discussed about a pacemaker which I do not believe is necessary at this time. He remains on anticoagulation. We will pursue workup with an echocardiogram and Holter monitor. Follow-up after the above. Orders: Orders CA echo transthoracic complete Today I48.0 - Paroxysmal atrial fibrillation ECG 3 day holter monitor Today I48.0 - Paroxysmal atrial fibrillation, R00.2 - Palpitations Coding Level of Care Code New Pt Level 4 (03986) Complex EM visit Add On G2211 Diagnoses PAF (paroxysmal atrial fibrillation) I48.0
[2025-03-20 12:32] VITALS: BP 120/62; PULSE 55; BMI 22.8
--- OUTSIDE RECORDS SUMMARY | 2025-03-20 14:54 | XMS_ITS | Clinical Summary ---
Author Organization [address] Address [address] [place] [phone] Phone Care Team Providers Care Box Tender Name Role Phone Donis Garza DO Primary Care Provider [phone] Surgical History Surgery Date Site/Laterality Comments COLONOSCOPY [...] [employer] [place] [employer] Care Teams Box Tender Relationship Specialty Start Date End Date Donis Garza DO [address] [place], [place] PCP - General Family Medicine 12/11/21
--- OUTSIDE RECORDS SUMMARY | 2025-03-20 14:54 | XMS_ITS | Clinical Summary ---
Author Organization [facility] Address [address] [place] [address] Care Team Providers Care Air Commodore Name Role Phone Donis Garza MD Primary Care Provider [phone] Allergies No known active allergies Medications No [...] Group Subscriber ID Effective Dates Phone Address [facility] [id number] 2021-Prese nt [address] [place] [address] [facility] [id number] 2019-Prese nt [address] [address] [place] [address] [place] [id number] 2021-Pre s ent [address] [place] [address] Medicaid Care Teams Air Commodore Relationship Specialty Start Date End Date Donis Garza MD [address] [place] [phone] PCP - General Family Medicine 12/11/21
--- OUTSIDE RECORDS SUMMARY | 2025-03-20 14:54 | XMS_ITS | Clinical Summary ---
Author Organization [facility] Address [address] [place] [address] Phone Care Team Providers Care Software Validation Engineer Name Role Phone Donis Garza [place] Primary [...] topic Medical Devices Not on file Insurance [facility] MEDICARE HMO REPLACEMENT [facility] MEDICARE HMO REPLACEMENT [place] [address] MEDICARE HMO REPLACEMENT [facility] MEDIC[facility] HMO REPLAC[facility] [place] [facility] MEDICARE HMO REPLACEMENT [facility] MEDICARE HMO REPLAC[place] [facility] MEDICARE HMO REPLACEMENT Member Subscriber Plan / Payer (Ef fective 2021-) Name:Jaspreet Borja Relation to Subscriber:Self Name:Jaspreet Borja Payer ID:Not on file Type:Medicare Address: [address] [facility] MEDICARE HMO REPLACEMENT [place] [facility] [place] MED[place] HMO REPLACEMENT [facility] Care Teams Software Validation Engineer Relationship Specialty Start Date End Date Donis Garza DO [address] [facility] [place] [address] PCP - General Family Medicine 03/12/21 Additional Source Comments The information contained in this document represents components of the legal health record. It is not the complete legal health record.[facility]
--- OUTSIDE RECORDS SUMMARY | 2025-03-20 14:54 | XMS_ITS | Encounter Summary ---
Author Organization [facility] Address [address] [place] [address] Care Team Providers Care Seed Mill Superintendent Name Role Phone Donis Garza DO Primary Care Provider [phone] Encounter Details Date Type Department Care Team (Late st Contact Info) Description 08/02/2024 Lab Requisition [facility] - Main Lab [address] [facility] [place] [address] Rip Álvarez PA [address] [phone] Gross hematuria Social History Tobacco [...] AM EST) Final Diagnosis A. Urine, Voided, ([id number]): Negative for high grade urothelial carcinoma. 08/15/2024 9:02 AM EST [facility] Clinical Information Gross hematuria R31.0 Urine Cytology (now) 08/15/2024 9:02 AM EST [facility] Gross Description A. Urine, Voided, ([id number]): Received is one ThinPrep slide for cytology. 08/15/2024 9:02 AM EST [facility] Disclaimer Unless otherwise specified, all tissue is 10% NB formalin fixed and paraffin embedded. Technical pathology services provided by [facility] [address] [address] [place] [address] (CLIA #[id number] racehll Petersen MD, Procurement Engineer) 08/15/2024 9:02 AM [facility] Tissue Urine specimen from urethra / Unknown 07/26/2024 08/02/2024 11:48 AM EST us Rip JO[facility] LAB PATHOLOGY ORDERABLES Final R esult [facility] [address] [place] [address], documented in this encounter Visit Diagnoses Diagnosis Gross hematuria documented in this encounter Care Teams Seed Mill Superintendent Relationship Specialty Start Date End Date Donis Garza DO [address] [place] [address] PCP - General Family Medicine 12/11/21 documented as of this encounter
--- OUTSIDE RECORDS SUMMARY | 2025-03-20 14:54 | XMS_ITS | Encounter Summary ---
Author Organization [facility] Address [address] [place] [address] Care Team Providers Care Boatswains Mate Name Role Phone Donis Garza DO Primary Care Provider [phone] Encounter Details Date Type Department Care Team (Late st Contact Info) Description 07/02/2024 Lab Requisition [facility] - Main Lab [address] [place] [address] Rip Álvarez PA [address] [id number] Gross hematuria Social History Tobacco [...] grade urothelial carcinoma. 07/23/2024 4:30 PM EST [facility] ([facility]) [facility] Clinical Information Gross Hematuria R31.0 [id number] Urine cytology. 07/23/2024 4:30 PM [facility] Gross Description A. Urine, Voided, : [id number] Received one ThinPrep slide for cytology 07/23/2024 4:30 PM [facility] Disclaimer Unless otherwise specified, all tissue is 10% NB formalin fixed and paraffin embedded. Technical pathology services provided by [facility] [address] [place] [address] (CLIA #[id number] rachell Petersen MD, Roofer Apprentice) 07/23/2024 4:30 PM [facility] Tissue Urine specimen from urethra / Unknown 06/28/2024 07/02/2024 10:19 AM EST us [facility] PATHOLOGY ORDERABLES Final R esult [facility] [address] [place] [address], documented in this encounter Visit Diagnoses Diagnosis Gross hematuria documented in this encounter Care Teams Boatswains Mate Relationship Specialty Start Date End Date Donis Garza DO [address] [place] [address] PCP - General Family Medicine 12/11/21 documented as of this encounter
--- OUTSIDE RECORDS SUMMARY | 2025-03-20 14:54 | XMS_ITS | Encounter Summary ---
Author Organization [facility] Address [address] [place], [place] [id number] Phone Care Team Providers Care Biochemical Engineer Name Role Phone Donis Garza DO Primary Care Provider Reason for Referral * Physical Therapy (Routine) - Closed Specialty Diagnoses / Procedures Referred By Ilda mercado Referred To Contact Physical Therapy Diagnoses Encounter for rehabilitation new pelvic floor Procedures evaluate and treat Jose Alcala MD Phone: tel: fax: [address] [address] Phone: tel: Referral ID Status Reason Start Date Expiration Date Visits Re quested Visits Authorized [id number] Closed 03/12/2021 07/17/2021 20 20 Encounter Details Date Type Department Care Team (Latest Contact Info) Description 03/12/2021 Transcribe Orders [facility] [address] [place] [address] Jose Alcala MD [address] [place] [phone] Encounter for rehabilitation (Primary Dx) Social History [...] Date/Time Associated Diagnosis Comments AMB REFERRAL TO [facility] PHYSICAL THERAPY Routine 05/05/2021 11:13 AM EDT Encounter for rehabilitation documented in this encounter Results * Ambulatory referral to [facility] Physical Therapy (05/05/2021 11:13 AM EDT) Other Jose Alcala MD AMB [facility] REFERRALS Final Res ult documented in this encounter Visit Diagnoses Diagnosis Encounter for rehabilitation- Primary documented in this encounter Care Teams Biochemical Engineer Relationship Specialty Start Date End Date Donis Garza DO [address] [facility] [place] [address] PCP - General Family Medicine 03/12/21 documented as of this encounter Additional Source Comments The information contained in this document represents components of the legal health record. It is not the complete legal health record.[facility]
--- OUTSIDE RECORDS SUMMARY | 2025-03-20 14:54 | XMS_ITS | Clinical Summary ---
Author Organization [facility] Address [address] [place] [address] Care Team Providers Care Sys Dir Name Role Phone Donis Garza Primary Care Provider [phone] Social History Tobacco Use Types Packs/Day Years [...] Patients (1 - 1-dose 75+ series) 01/26/2031 Advance Care Planning Completed 12/15/2023 Hepatitis B Vaccines Aged Out No long er eligible based on patient's age to complete this topic Insurance Advance Directives Documents on File Type Date Recorded Patient Gravure Press Set Up Operator Expl anation Advance Directive-Scan 12/15/2023 [facility] MEDICAL ORDERS FOR LIFE-SUSTAINING TREATMENT Care Teams Sys Dir Relationship Specialty Start Date End Date Donis Garza DO [address] [place] [address] PCP - General 11/10/23 Michel George MD [address] [place] [id number] Neurology Neurology 11/10/23
== END 2025-03-20 13:05 | disposition home or self-care (01) ==
LOC: HO.HCS 12:19
PROVIDERS: PCP Family Medicine; Visit Provider Internal Medicine
DX: I48.0 Paroxysmal atrial fibrillation (principal)
CPT/HCPCS: 99214; G2211

== ENCOUNTER → 2025-03-20 12:19 | Outpatient (BNVA) | payer MEDICARE, SELFPAY | PROVIDERS: PCP Family Medicine; Visit Provider Internal Medicine | DX: I48.0 Paroxysmal atrial fibrillation (principal) | CPT/HCPCS: 99212 ==